=== PATIENT | male | born 1970 | race African-American/Black ===

== ENCOUNTER 2017-10-12 18:10 | Emergency (ER) | payer SELFPAY ==
[~2017-10-12] VITALS: Ht 177.8 cm; Wt 118.0 kg
[~2017-10-12 18:10] MED LIST: CYCL-36 PO; LORTA10 PO
[2017-10-12 18:23] VITALS: BP 148/66; PULSE 87; RESP 18; O2SAT 96
--- NOTE | 2017-10-12 20:12 | PD ---
HPI Chief Complaint: Back/ Neck Pain or Injury Time Seen by Provider: 19:53 Travel History International Travel<30 days: No Contact w/Intl Traveler<30days: No Traveled to known affect area: No History of Present Illness HPI Is a 47-year-old male presents emergency department for evaluation of low back pain without radiation. Patient states been going on for the past few weeks, waxing and waning. Not associated with any saddle anesthesia or difficulty urinating. 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 States symptoms are moderate, low back, no radiation, associated signs and symptoms in context as above PFSH Past Medical History Diabetes: No Respiratory: No Ulcer: Yes Past Surgical History Cholecystectomy: Yes Other Surgery: Yes (TRACH/FEEDING TUBE DUE TO COCAINE OVERDOSE) Social History Alcohol Use: No Tobacco Use: No Substance Use: No (CLEAN SINCE 2003. HX OF COCAINE USE.) Allergies-Medications (Allergen,Severity, Reaction): Coded Allergies: No Known Allergies (Verified Allergy, Unknown, 10/12/17) Reported Meds & Prescriptions Reported Meds & Active Scripts Active Reported Flexeril (Cyclobenzaprine HCl) 10 Mg Tab 10 Mg PO TID Lortab 10/325 Tab (Hydrocodone-Acetaminophen) 10 Mg/325 Mg Tab 1 Tab PO Q6H PRN Review of Systems Except as stated in HPI: all other systems reviewed are Neg Physical Exam Narrative GENERAL: Well-nourished, well-developed patient. SKIN: Focused skin assessment warm/dry. HEAD: Normocephalic. Atraumatic EYES: No scleral icterus. No injection or drainage. NECK: Supple, trachea midline. No JVD or lymphadenopathy. CARDIOVASCULAR: Regular rate and rhythm without murmurs, gallops, or rubs. RESPIRATORY: Breath sounds equal bilaterally. No accessory muscle use. GASTROINTESTINAL: Abdomen soft, non-tender, nondistended. MUSCULOSKELETAL: No cyanosis, or edema. No midline CT or L-spine tenderness, he does have some tenderness to the left of midline on the lumbar spine. Ambulates with an even narrow-base gait, 5 out of 5 strength in bilateral lower extremity's BACK: Nontender without obvious deformity. No CVA tenderness. Data Data Last Documented VS Vital Signs Date Time Temp Pulse Resp B/P (MAP) Pulse Ox O2 Delivery O2 Flow Rate FiO2 10/12/17 18:23 87 18 148/66 (93) 96 Orders Orders Ibuprofen (Motrin) (10/12/17 21:00) Ed Discharge Order (10/12/17 20:12) MDM Medical Decision Making Medical Screen Exam Complete: Yes Emergency Medical Condition: Yes Differential Diagnosis Strain, sprain, fracture highly unlikely Narrative Course Patient room to the emergency department, no indication for cauda equina syndrome, no indication for imaging at this time. Discussed symptomatic management follow-up with a primary care physician or the [facility] and return to ED criteria Diagnosis Primary Impression: Back pain Qualified Codes: M54.5 - Low back pain Referrals: [facility] Disposition: 01 DISCHARGE HOME Condition: Stable Braden Hill MD Oct 12, 2017 20:12
[2017-10-12] MEDS ORDERED: IBUPROFEN 600 MG TAB PO ONE (21:00)
== END 2017-10-12 20:46 | disposition home or self-care (01) ==
LOC: NEPD 18:10
DX: M54.5 Low back pain (principal)
CPT/HCPCS: 99281